=== PATIENT | female | born 1975 | race Caucasian/White ===

== ENCOUNTER 2019-05-21 10:19 | Emergency (ER) | payer SELFPAY ==
[~2019-05-21] VITALS: Ht 157.5 cm; Wt 65.1 kg
[~2019-05-21 10:19] MED LIST: GABA100C14 PO
[2019-05-21 10:23] VITALS: BP 137/66; PULSE 71; RESP 20; Ht 157.5 cm; Wt 65.1 kg
[2019-05-21] MEDS ORDERED: GABAPENTIN 100 MG CAP PO ONE (11:00)
== END 2019-05-21 11:36 | disposition home or self-care (01) ==
LOC: FTE 10:19
DX: G62.9 Polyneuropathy, unspecified (principal)
CPT/HCPCS: 81003; 82962; 99283